=== PATIENT | female | born 1990 | race Caucasian/White ===

== ENCOUNTER 2025-05-23 07:34 | Outpatient (CLI) | payer MEDICAID, SELFPAY ==
[2025-05-23 10:32] LABS: HCT 40.3 % (36.0-46.0); HGB 13.2 g/dL (11.2-15.7); MCH 27.8 pg (27.0-33.0); MCHC 32.8 % (32.0-36.0); MCV 85 fL (80-95); MPV 9.8 fL (8.0-11.0); Platelet Count 279 10^3/uL (130-400); RBC 4.74 10^6/uL (3.93-5.22); RDW 13.5 % (11.7-14.6); RDW-SD 42.2 fL; WBC 4.54 10^3/uL (4.4-10.8)
[2025-05-23 12:05] LABS: Cannabinoids THC Positive (Negative); METHADONE URINE SCREEN Negative (Negative)
[2025-05-23 19:36] LABS: Hepatitis C Ab w Rflx HCV PCR Reactive (Negative)
== END 2025-05-23 07:35 | disposition home or self-care (01) ==
LOC: LBO 07:34
PROVIDERS: PCP Nurse Practitioner Adult Health; Visit Provider Obstetrics & Gynecology
DX: Z30.2 Encounter for sterilization; R76.8 Other specified abnormal immunological findings in serum; O26.899 Other specified pregnancy related conditions, unspecified trimester; Z67.91 Unspecified blood type, Rh negative; F19.21 Other psychoactive substance dependence, in remission
CPT/HCPCS: 36415; 80307; 85027; 86803; 86850; 86900; 86901; 87522

== ENCOUNTER 2025-05-25 06:17 | Day surgery (SDC) | payer MEDICAID, SELFPAY ==
[2025-05-25] VITALS (19 sets, daily range): BP systolic 101–133; BP diastolic 65–80; PULSE 48–75; RESP 13–25; TEMP 36.2–36.7; O2SAT 97–100; BMI 34.0
--- NOTE | 2025-05-25 06:23 | W.ANESPRE ---
General Info Date of Service Date Performed: 05/25/25 Height: 5 ft 1 in Weight: 81.647 kg Body Mass Index (BMI): 34.0 Surgical Procedure: Operation Date: 05/25/25 07:40 Proposed Procedure Side Surgeon p Salpingectomy Laparoscopic, Possible Open Bilateral Yeny Mina DO Meds Allergies and Home Medications Allergies Allergy/AdvReac Type Severity Reaction Status Date / Time No Known Allergies Allergy Unverified 05/25/25 06:27 Home Medication ?Medication ?Instructions ?Recorded buspirone 10 mg tablet 10 mg PO BID 04/21/25 lamotrigine 100 mg tablet 100 mg PO DAILY 04/21/25 (Lamictal) medroxyprogesterone 150 mg/mL 150 mg IM [id number] #1 mL 04/21/25 intramuscular syringe (Depo-Provera) topiramate 100 mg tablet (Topamax) 100 mg PO DAILY 04/21/25 Current Visit Medications: Current Medications Generic Name Dose Route Start Last Admin Trade Name Freq PRN Reason Stop Dose Admin Ringer's Solution 1,000 mls @ 150 mls/hr 05/25/25 06:00 IV 05/25/25 23:59 INFUSION JARON Acetaminophen 1,000 mg in 100 mls @ 400 mls/hr 05/25/25 06:00 Ofirmev IVPB 05/25/25 23:00 PREOP JARON IV Miscellaneous Supplies 1 each 05/25/25 06:00 Iv Access IV 05/25/25 23:59 DIRECTED JARON Sodium Chloride 0 ml 05/25/25 06:00 Normal Saline Flush 10 Ml Syr IV 05/25/25 23:59 PRN PRN Sodium Chloride 0 ml 05/25/25 06:00 Normal Saline 10 Ml Vial IJ 05/25/25 23:59 DIRECTED PRN Sterile Water 0 ml 05/25/25 06:00 Water,Injection,Sterile 10 Ml Vial IJ 05/25/25 23:59 DIRECTED PRN PFSH Active Problems Active Problems: Problem Status Onset Code Encounter for tubal ligation Acute Z30.2 Oral contraceptive use Acute Z30.41 Medical History Medical History Substance abuse Hepatitis C test positive for antibodies Depression (04/29/13) Asthma (10/17/13) induced asthma Tobacco Smoking/Tobacco Use Status: Current every day Tobacco Type: e-cigarettes Alcohol Alcohol Intake: former Substance Use Substance use: Daily Substance use type: marijuana, opiates and methamphetamine Details: daily use of THC via smoking flower Prental History History 4 Para 4 Hx # Term Pregnancies Multiple births Hx # Pregnancies Ectopic pregnancies AB induced Hx Number of Living Children 4 AB spontaneous Past Pregnancies Del. Date GA/Weeks # Preg Succ Route Wgt Sex Labor Lgth Anesthesia Location Prov [facility] 07/20/12 40 Yes vaginal 3997.283 g Male 11/27/13 39 Yes vaginal 3033.399 g Female 12/30/18 39 vaginal 3640.079 g Female 01/26/21 38 Yes vaginal 4139.03 g Male Vital Signs and Lab Results Lab Results Blood Type / Crossmatch: Antibody Screen NEGATIVE 05/23/25 Complete Blood Count: WBC, (4.4-10.8) 4.54 10^3/uL 05/23/25, 10:10 RBC, (3.93-5.22) 4.74 10^6/uL 05/23/25, 10:10 Hgb, (11.2-15.7) 13.2 g/dL 05/23/25, 10:10 Hct, (36.0-46.0) 40.3 % 05/23/25, 10:10 Plt Count, (130-400) 279 10^3/uL 05/23/25, 10:10 Infectious Disease: Hepatitis C Antibody, (Negative) Reactive A 05/23/25, 10:10 Hepatitis C RNA Quant Pending 05/23/25, 10:10 Toxicology Panel: Ur Amphetamines Screen, (Negative) Negative 05/23/25, 10:00 U Benzodiazepines Scrn, (Negative) Negative 05/23/25, 10:00 Ur Barbiturates Screen, (Negative) Negative 05/23/25, 10:00 Urine Cocaine Screen, (Negative) Negative 05/23/25, 10:00 Urine Methadone Screen, (Negative) Negative 05/23/25, 10:00 Urine Opiates Screen, (Negative) Negative 05/23/25, 10:00 Ur Tricyclics Screen, (Negative) Negative 05/23/25, 10:00 Ur THC Screen, (Negative) Positive A 05/23/25, 10:00 Anesthesia Assessment and Plan Anesthesia History Personal History: No History of Anesthesia Complications Family History: No Family History of Anesthesia Complications Exercise Tolerance Exercise Tolerance: Metabolic Equivalents>4 Cardiac & Pulmonary Exam Cardiac Exam: Normal S1/S2 Heart Sounds Pulmonary Exam: Clear Bilateral Breath Sounds Implantable Cardiac Device Does patient have a Pacemaker or an ICD?: No Airway Exam Known Difficult Airway: No Mallampati Class: 2 Mouth Opening: Normal (> 3cm) Thyromental Distance: Greater than 3 cm Neck Range of Motion: Full ROM Neck Circumference: Normal Teeth Condition: Normal Dentition ASA Classification ASA Score: ASA 2 Emergency Case?: No NPO Status NPO Status: NPO Clears >2 hours, Solids >8 hours Status Status: Negative HCG Anesthesia Plan Resuscitation Status: Full Code Anesthesia Technique: General Anesthesia Airway Planned: Endotracheal Tube Monitors Used: Standard Monitors Preoperative Comments:: 35 yo for salping. Sig PMHx: asthma (only during preg), hep c, depression.
[2025-05-25] MEDS: Lactated Ringers 1,000 ML 150 ML IV (06:50)
[2025-05-25] MEDS: Bupivacaine 0.25% Pres-Free W/EPI 30 ML VIAL (08:39)
--- NOTE | 2025-05-25 09:06 | W.PM.OP ---
Operative Note Operative Note PRE-OP DIAGNOSIS: completed family status POST-OP DIAGNOSIS: same PROCEDURE: Laparoscopic bilateral salpingectomy SURGEON: Yeny Mina ASSISTING SURGEON: Jen Mcclure Refer to Anesthesia Record ESTIMATED BLOOD LOSS: 5 PATHOLOGY: other (Bilateral fallopian tubes) COMPLICATIONS: None Patient was transported to: PACU Patient's condition: stable Findings: Notably elastic tissues. Otherwise, scattered paratubal cysts noted along the left fallopian tube; generally unremarkable pelvic anatomy. Procedure Description: Patient was taken to the OR with IV fluids running. Anesthesia was established and found to be adequate. She was positioned into a modified dorsolithotomy position with her legs up in yellowfin stirrups. Her pelvis was prepped with Betadine and her abdomen was prepped with chlorhexidine; 3 minutes was allowed for drying. She was draped in sterile dressings. A timeout was performed. A Graves speculum was used to visualize the cervix, and a single-tooth Hoka uterine manipulator was placed without issue. Gloves were changed and attention was turned to the abdomen. Marcaine was injected into the infrapubic margin and the skin was incised with a #11 blade. The skin was retracted upward with bilateral toe clips, and a 5 mm trocar was placed using the Optiview technique. Of note, due to notable skin laxity, the first attempt of placement was not successful. I then attempted entrance using the Veress needle, but this too seem to slide along the patient's fascia before entering the abdominal cavity. I reevaluated with the accompanying surgeon and we carefully retried the Optiview technique 1 more time, and this time I was successful. Pneumoperitoneum was established, and a 5 mm port was placed in the left lower quadrant and an 8 mm port was placed in the right lower quadrant using direct visualization. An assessment of the abdominal cavity found no evidence of trauma from entrance, and the above pelvic anatomy was appreciated. The left tube was first isolated and then dissected off using Ligassure without issue, and then the same was done for the right tube. Careful assessment following removal of the tubes appreciated good hemostasis even at reduced pressures. All instruments were then removed and the pneumoperitoneum was released. Ports were closed with 4-0 Monocryl and covered with Dermabond. Patient tolerated procedure well was taken to PACU in good condition. Date of Procedure: 06/08/25
[2025-05-25] MEDS: HYDROmorphone 2 MG/ML SYR IVP ×2 (09:21→09:31)
--- NOTE | 2025-05-25 09:24 | W.ANESPOSTOP ---
Postoperative Evaluation Date, Time and Location Date Performed: 05/25/25 Time Performed: :24 Patient Location: PACU Vital Signs Most Recent Imported Vital Signs: Most Recent Vital Signs Temp Pulse Resp BP Pulse Ox 36.6 C 68 22 112/67 99 05/25/25 09:12 05/25/25 09:12 05/25/25 09:12 05/25/25 09:12 05/25/25 09:12 Pain Score Most Recent Pain Score: Most Recent Pain Score Pain Level 6 05/25/25 09:15 Assessment Mental Status: Awake (Alert & Oriented to Patient Baseline) Airway and Respiratory Function: Patent airway with normal (patient baseline) respiratory exam Cardiovascular Function: Hemodynamically Stable Hydration Status: Adequately Hydrated Nausea & Vomiting: No Nausea or Vomiting Pain: Pain is Moderate or Severe Postoperative Pain Management: Pain being addressed with medication Peripheral Nerve Block: Patient did not receive a nerve block
== END 2025-05-25 11:10 | disposition home or self-care (01) ==
PROVIDERS: PCP Nurse Practitioner Adult Health; Visit Provider Obstetrics & Gynecology
PROC: (CPT 58661; principal; 2025-05-25 07:30)
DX: Z30.2 Encounter for sterilization (principal); F19.90 Other psychoactive substance use, unspecified, uncomplicated; N83.8 Other noninflammatory disorders of ovary, fallopian tube and broad ligament
CPT/HCPCS: 58661; 36415; 81025; 86850; 86900; 86901; 88302; J0131; J1100; J1171; J1885; J2371; J2405; J2704; J3475